=== PATIENT | male | born 1980 | race Caucasian/White ===

== ENCOUNTER 2025-02-21 10:29 | Emergency (ER) | payer OTHER ==
[2025-02-21] MEDS ORDERED: levETIRAcetam 500 MG (5 mL) VIAL ONE (10:41)
[2025-02-21 10:46] LABS: #Basophils 0.05 10x3/uL (0.0-0.2); #Eosinophils 0.22 10x3/uL (0.0-0.7); #Monocytes 1.28 10x3/uL (0.11-0.59); #Neutrophils 9.49 10x3/uL (1.40-6.50); %Basophils 0.3 % (0.0-1.0); %Eosinophils 1.5 % (0.0-10.0); %Lymphocytes 25.9 % (21.0-51.0); %Monocytes 8.5 % (0.0-10.0); %Neutrophils 63.4 % (42.0-75.0); Hematocrit 46.7 % (42.0-52.0); Hemoglobin 14.4 g/dL (14.0-18.0); Mean Corpuscular Hemoglobin 29.0 pg (27.0-31.0); Mean Corpuscular Volume 94.0 fL (78.0-98.0); Platelet Count 385 10x3/uL (130-400); Red Blood Cell (RBC) Count 4.97 mill/uL (4.70-6.10); White Blood Cell (WBC) Count 14.98 10x3/uL (4.8-10.8)
[2025-02-21 11:05] LABS: ALT (SGPT) 31 U/L (Less than 45); AST (SGOT) 36 U/L (11-34); Albumin 4.5 g/dL (3.1-4.5); Alkaline Phosphatase 54 U/L (40-110); Anion Gap 26 mmol/L (10-20); BUN (Urea Nitrogen) 15 mg/dL (8.9-20.6); Bilirubin, Total 0.7 mg/dL (0.3-1.2); Calc. Creatinine Clearance 0 mL/min (70-130); Calcium 9.4 mg/dL (7.8-10.44); Carbon Dioxide 18 mmol/L (22-29); Chloride 102 mmol/L (98-107); Globulin 3.9 g/dL (2.4-3.5); Glucose 116 mg/dL (70-105); Potassium 3.5 mmol/L (3.5-5.1); Sodium 142 mmol/L (136-145)
== END 2025-02-21 12:55 | disposition home or self-care (01) ==
LOC: ERS 10:29
DX: R56.9 Unspecified convulsions (principal); I10 Essential (primary) hypertension
CPT/HCPCS: 36416; 80053; 85025; 96365; J1953